=== PATIENT | female | born 1995 | race Caucasian/White ===

== ENCOUNTER 2019-11-10 19:11 | Emergency (ER) | payer OTHER ==
[2019-11-10] MEDS ORDERED: Acetaminophen 325 MG Tab PO ONE (19:28)
--- NOTE | 2019-11-10 19:28 | EDM.PDOC ---
ED HPI GENERAL MEDICAL PROBLEM - General Chief Complaint: Fever Stated Complaint: HIGH FEVER AND VOMITING Time Seen by Provider: 11/10/19 19:15 Source of Information: Reports: Patient History Limitations: Reports: No Limitations - History of Present Illness INITIAL COMMENTS - FREE TEXT/NARRATIVE: Patient states she has been running intermittent fever since Friday. States she was seen at the clinic yesterday and tested negative for flu but was not checked for anything else she has been taken Tylenol Motrin [id number] Says she has been having cough nausea for about a week as well with her any complaints vomiting twice today pain better lower back bilateral but a 6 out of 10 she denies any dysuria or frequency States she has been holding Gatorade about 332 ounce bottles today with no issues She is allergic to Ancef Duration: Day(s): Associated Symptoms: Reports: Cough, Fever/Chills, Nausea/Vomiting. 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 Denies: Malaise, Weakness, Decreased Appetite HEENT: Reports: Throat Pain. Denies: Dental Pain, Ear Discharge, Ear Pain, Nose Pain, Rhinitis, Throat Swelling Respiratory: Reports: Cough. Denies: Shortness of Breath, Wheezing, Pleuritic Chest Pain Cardiovascular: Reports: No Symptoms Endocrine: Reports: No Symptoms GI/Abdominal: Reports: No Symptoms : Reports: No Symptoms. Denies: Discharge, Dysuria, Flank Pain, Frequency, Hematuria, Incontinence, Pain, Urgency Musculoskeletal: Reports: No Symptoms Skin: Reports: No Symptoms Neurological: Reports: No Symptoms Psychiatric: Reports: No Symptoms Hematologic/Lymphatic: Reports: No Symptoms Immunologic: Reports: No Symptoms ED EXAM, ENT - Physical Exam Exam: See Below Exam Limited By: No Limitations General Appearance: Alert, WD/WN, No Apparent Distress, Other (Patient noted to be tachycardic febrile sats 95 96%) Eye Exam: Bilateral Eye: EOMI, PERRL Ears: Normal External Exam, Normal Canal, Hearing Grossly Normal, Normal TMs Nose: Normal Inspection, Normal Mucousa, No Blood Mouth/Throat: Normal Inspection, Normal Gums, Normal Lips, Normal Oropharynx, Normal Teeth, Other (Negative exudate no erythema no edema postnasal drip noted in line uvula) Head: Atraumatic, Normocephalic Neck: Normal Inspection, Supple, Non-Tender, Full Range of Motion. No: Limited Range of Motion, Lymphadenopathy (L), Lymphadenopathy (R) Respiratory/Chest: No Respiratory Distress, Lungs Clear, Normal Breath Sounds, No Accessory Muscle Use, Chest Non-Tender Cardiovascular: Normal Peripheral Pulses, Regular Rate, Rhythm, No Edema, No Gallop, No JVD, No Murmur, No Rub, Tachycardia GI/Abdominal: Normal Bowel Sounds, Soft, Non-Tender, No Organomegaly, No Distention, Other (Negative CVA tenderness palpation bilateral) Back: Normal Inspection, Full Range of Motion. No: CVA Tenderness (L), CVA Tenderness (R) Extremities: Normal Inspection, Normal Range of Motion, Non-Tender, No Pedal Edema, Normal Capillary Refill Neurological: Alert, Oriented, CN II-XII Intact, Normal Cognition, Normal Gait, Normal Reflexes, No Motor/Sensory Deficits Psychiatric: Normal Affect, Normal Mood Skin: Warm, Dry, Intact, Normal Color, No Rash Lymphatic: No Adenopathy Course - Vital Signs Text/Narrative:: Chest x-ray AP and lateral with a urine Negative Chest x-ray left lower lobe infiltrate will treat with Levaquin 750 p.o. x5 days secondary to patient has severe allergic reaction to Ancef due to the patient's age and young and healthy no blood work will be drawn at this time will treat clinically patient is okay with a diagnosis and understands need for follow-up Last Recorded V/S: Last Vital Signs Temp 38.8 C H 11/10/19 19: Pulse 126 H 11/10/19 19:22 Resp 18 11/10/19 19:22 BP 117/76 11/10/19 19:22 Pulse Ox 95 11/10/19 19:22 - Orders/Labs/Meds Orders: Active Orders 24 hr Category Date Time Status Chest 2V [CR] Stat Exams 11/10/19 19:22 Taken levoFLOXacin [Levaquin] Med 11/10/19 20:15 Once 750 mg PO ONETIME ONE Labs: Laboratory Tests 11/10/19 Range/Units 19:37 Urine HCG, Qual Negative (NEGATIVE) Meds: Medications Discontinued Medications Generic Name Dose Route Start Last Admin Trade Name Sara PRN Reason Stop Dose Admin Acetaminophen 650 mg 11/10/19 19:28 11/10/19 19:34 Tylenol PO 11/10/19 19:29 650 mg NOW ONE Administration Ibuprofen 600 mg 11/10/19 19:29 11/10/19 19:34 Motrin PO 11/10/19 19:30 600 mg NOW STA Administration Departure - Departure Time of Disposition: 20:25 Disposition: Home, Self-Care 01 Condition: Good Clinical Impression: Pneumonia, Fever - Discharge Information Forms: ED Department Discharge Sepsis Event Note - Focused Exam Vital Signs: Vital Signs Temp Pulse Resp BP Pulse Ox 11/10/19 19:22 38.8 C H 126 H 18 117/76 95 Date Exam was Performed: 11/10/19 Time Exam was Performed: 20:16 - Problem List & Annotations (1) Fever SNOMED Code(s): 903134180 Code(s): R50.9 - FEVER, UNSPECIFIED Status: Acute Current Visit: Yes (2) Pneumonia SNOMED Code(s): 191932863 Code(s): J18.9 - PNEUMONIA, UNSPECIFIED ORGANISM Status: Acute Current Visit: Yes - My Orders Last 24 Hours: My Active Orders 11/10/19 19:22 Chest 2V [CR] Stat 11/10/19 20:15 levoFLOXacin [Levaquin] 750 mg PO ONETIME ONE - Assessment/Plan Last 24 Hours: My Active Orders 11/10/19 19:22 Chest 2V [CR] Stat 11/10/19 20:15 levoFLOXacin [Levaquin] 750 mg PO ONETIME ONE
[2019-11-10] MEDS ORDERED: Ibuprofen 200 MG Tab PO STA (19:29)
[2019-11-10] MEDS ORDERED: Levofloxacin 500 MG Tab PO ONE (20:15)
--- NOTE | 2019-11-10 20:37 | CR ---
[id number] RAD/RAD Chest PA And Lateral EXAM: RAD Chest PA And Lateral INDICATION: FEVER, R/O PNEUMONIA COMPARISON: None. DISCUSSION: Cardiomediastinal silhouette is normal in size and contour. Parenchymal opacification in the left lung base, localizing to the lower lobe on lateral view. Findings are consistent with pneumonia. Possible right lower lobe pneumonia inferior to the hilum as well. IMPRESSION: Left lower lobe parenchymal opacification consistent with pneumonia. Possible right lower lobe pneumonia as well. Moustapha Pitts MD 11/10/19 2036 Thank you for allowing us to participate in the care of your patient.
== END 2019-11-10 20:33 | disposition home or self-care (01) ==
LOC: VM.ED 19:11
DX: J18.9 Pneumonia, unspecified organism (principal); Z88.1 Allergy status to other antibiotic agents
CPT/HCPCS: 71046; 81025; 99284; A9270